=== PATIENT | female | born 1940 | race Caucasian/White ===

== ENCOUNTER 2018-07-09 23:12 | Emergency (ER) | payer MEDICARE, BC ==
[2018-07-09 23:43] LABS: ABSOLUTE BASOPHILS # (AUTO) 0.1 10^3/uL (0.0-0.2); ABSOLUTE EOSINOPHILS # (AUTO) 0.1 10^3/uL (0.0-0.6); ABSOLUTE LYMPHOCYTES (AUTO) 1.1 10^3/uL (0.5-4.7); ABSOLUTE MONOCYTES (AUTO) 0.7 10^3/uL (0.1-1.4); ABSOLUTE NEUT (AUTO) 12.3 10^3/uL (1.7-8.2); BASOPHILS % (AUTO) 0.5 % (0-2); EOSINOPHILS % (AUTO) 0.4 % (0-6); HEMATOCRIT 37.3 % (36.0-47.0); HEMOGLOBIN 12.4 g/dL (12.0-15.5); LYMPHOCYTES % (AUTO) 7.9 % (13-45); MEAN CORPUSCULAR HEMOGLOBIN 28.2 pg (27.0-33.4); MEAN CORPUSCULAR HGB CONC 33.2 g/dL (32.0-36.0); MEAN CORPUSCULAR VOLUME 85 fl (80-97); MONOCYTES % (AUTO) 4.8 % (3-13); PLATELET COUNT 275 10^3/uL (150-450); RED CELL DISTRIBUTION WIDTH 14.8 % (11.5-14.0); SEGMENTED NEUTROPHILS % (AUTO) 86.4 % (42-78); TOTAL CELLS COUNTED % (AUTO) 100 %; WHITE BLOOD COUNT 14.3 10^3/uL (4.0-10.5)
[2018-07-09 23:49] LABS: ALANINE AMINOTRANSFERASE 24 U/L (9-52); ALKALINE PHOSPHATASE 67 U/L (38-126); ANION GAP 8 (5-19); ASPARTATE AMINO TRANSFERASE 18 U/L (14-36); BILIRUBIN,DIRECT 0.3 mg/dL (0.0-0.4); BILIRUBIN,TOTAL 0.3 mg/dL (0.2-1.3); BLOOD UREA NITROGEN 19 mg/dL (7-20); CALCIUM 9.3 mg/dL (8.4-10.2); CARBON DIOXIDE 30 mmol/L (22-30); CHLORIDE 96 mmol/L (98-107); GLUCOSE 153 mg/dL (75-110); LIPASE 71.6 U/L (23-300); POTASSIUM 3.9 mmol/L (3.6-5.0); TOTAL PROTEIN 7.2 g/dL (6.3-8.2)
[2018-07-10] MEDS ORDERED: MAG HYDROX/AL HYDROX/SIMETH SUSP 30 ML UDCUP PO ONE ×3 (00:11→03:39)
[2018-07-10] MEDS ORDERED: LIDOCAINE 2% VISCOUS SOLN 20 ML UDCUP PO ONE ×3 (00:11→03:39)
[2018-07-10 00:12] LABS: CREATINE KINASE 49 U/L (30-135)
[2018-07-10 00:53] LABS: APPEARANCE,URINE CLEAR; BILIRUBIN,URINE NEGATIVE (NEGATIVE); COLOR,URINE STRAW; GLUCOSE, URINE NEGATIVE (NEGATIVE); KETONES,URINE NEGATIVE (NEGATIVE); LEUKOCYTE ESTERASE,URINE NEGATIVE (NEGATIVE); NITRITE,URINE NEGATIVE (NEGATIVE); PROTEIN,URINE NEGATIVE (NEGATIVE); UROBILINOGEN,URINE NEGATIVE mg/dL (<2.0)
--- NOTE | 2018-07-10 01:28 | RADIOLOGY REPORT (SQ) ---
EXAM DESCRIPTION: US ABDOMEN LIMITED COMPLETED DATE/TME: 07/10/2018 00:11 CLINICAL HISTORY: 77 years, Female, Epigastric and RUQ abd pain COMPARISON: None. TECHNIQUE: Grayscale and color Doppler images of the abdomen LIMITATIONS: None. FINDINGS: The visualized portions of the pancreas, aorta, and IVC appear unremarkable. The liver is normal in size, shape, and echotexture. The liver measures 11.8 cm. The main portal vein demonstrates normal hepatopedal flow. The gallbladder is normal. There is no wall thickening or stones. No sonographic Eddy sign was elicited. The common bile duct measures up to 3 mm in diameter. The right kidney measures 10.5 x 5.1 x 5 1 cm. No hydronephrosis. There is a 2.6 x 2.4 x 1.9 cm left renal cyst. IMPRESSION: No evidence of cholelithiasis or acute cholecystitis. copyright 2010 [employer]- All Rights Reserved
[2018-07-10] MEDS ORDERED: ONDANSETRON HCL INJ/PF 4 MG/2 ML SDV IV ONE (01:33)
[2018-07-10] MEDS ORDERED: FENTANYL CITRATE INJ/PF 100 MCG/2 ML AMPUL IV ONE (01:33)
[2018-07-10] MEDS ORDERED: PANTOPRAZOLE SODIUM 40 MG VIAL IV ONE (01:33)
[2018-07-10 03:36] VITALS: BP 187/77
--- NOTE | 2018-07-10 05:01 | ER Document Report ---
Entered by MARLYN SULLIVAN SCRIBE 07/10/18 0016 Acting as scribe for:SELENA BULLOCK MD ED General - General Chief Complaint: Epigastric Pain Stated Complaint: ABDOMINAL PAIN Time Seen by Provider: 07/09/18 23:58 Primary Care Provider: CHRIS GIRON MD [Primary Care Provider] - Follow up as needed Mode of Arrival: Ambulatory Information source: Patient Notes: Patient is a 77 year old female with HTN, rheumatoid arthritis, hypothyroidism presents to the emergency department complaining of epigastric abdominal pain onset today. Patient states she has been struggling with increased indigestion for the last 2 months. She states she presented to her PCP in [place] and is scheduled to have an EGD in 4 months. She states today after having a bath, she began to have a sudden onset of sharp, "unbearable" epigastric abdominal pain. Patient states the pain was a 5/5 in severity for 2 hours and is currently a 3/5. Patient states a pepto bismol tablet has helped her symptoms. TRAVEL OUTSIDE OF THE [place] IN LAST 30 DAYS: No - Related Data Allergies/Adverse Reactions: oxycodone HCl [From Percocet] Allergy (Verified 07/10/18 00:47) Past Medical History - General Information source: Patient - Social History Smoking Status: Former Smoker Cigarette use (# per day): No - Nicotine gum Smoking Education Provided: No Frequency of alcohol use: None Family History: Reviewed & Not Pertinent Patient has suicidal ideation: No Patient has homicidal ideation: No - Past Medical History Cardiac Medical History: Reports: Hx Atrial Fibrillation, Hx Hypertension - ON MEDS Pulmonary Medical History: Comment Only: Hx Asthma - HX ASTHMA WITH CERTAIN BP MEDS, NO LONGER TAKING Musculoskeletal Medical History: Reports Hx Arthritis - RA Past Surgical History: Reports: Hx Genitourinary Surgery - Cystocele repair, Hx Hysterectomy, Hx Orthopedic Surgery - Right shoulder tendon repair, Other - rectocele repair - Immunizations Hx Diphtheria, Pertussis, Tetanus Vaccination: Yes Hx Pneumococcal Vaccination: 04/02/14 Review of Systems - Review of Systems Constitutional: No symptoms reported EENT: No symptoms reported Cardiovascular: No symptoms reported Gastrointestinal: See HPI, Abdominal pain Genitourinary: No symptoms reported Female Genitourinary: No symptoms reported Musculoskeletal: No symptoms reported Skin: No symptoms reported Hematologic/Lymphatic: No symptoms reported Neurological/Psychological: No symptoms reported -: Yes All other systems reviewed and negative Physical Exam - Vital signs Vitals: Temp 97.6 F 07/09/18 23:15 - Notes Notes: GENERAL: Alert, interacts well. No acute distress. HEAD: Normocephalic, atraumatic. EYES: Pupils equal, round, and reactive to light. Extraocular movements intact. ENT: Oral mucosa moist, tongue midline. NECK: Full range of motion. Supple. Trachea midline. LUNGS: Clear to auscultation bilaterally, no wheezes, rales, or rhonchi. No respiratory distress. HEART: Regular rate and rhythm. No murmurs, gallops, or rubs. ABDOMEN: Soft, epigastric tenderness to palpation. Non-distended. Bowel sounds present in all 4 quadrants. No guarding, rigidity, or rebound. EXTREMITIES: Moves all 4 extremities spontaneously. No edema. NEUROLOGICAL: Alert and oriented x3. Normal speech. PSYCH: Normal affect, normal mood. SKIN: Warm, dry, normal turgor. No rashes or lesions noted. Course - Re-evaluation Re-evalutation: 07/10/18 01:34 Patient reports that her epigastric discomfort did improve immediately after drinking the GI cocktail. The pain has now returned and she states that it has "returned with a vengeance". She also has some nauseousness. She does not think she can go home with this kind of discomfort and would like to be admitted to the hospital. 07/10/18 03:38 The patient got additional relief with a second GI cocktail and was able to sleep for a while. She does feel a little bit of the discomfort at this time, but feels comfortable going home. I told her I would give her an additional dose of the GI cocktail prior to discharge to help ensure that she remains comfortable over the next several hours. - Vital Signs Vital signs: Temp Pulse Resp BP Pulse Ox 97.6 F 14 182/68 H 94 07/09/18 23:15 07/10/18 03:01 07/10/18 03:01 07/10/18 03:01 - Laboratory Result Diagrams: 07/09/18 23:23 07/09/18 23:23 Laboratory results interpreted by me: 07/09/18 07/09/18 07/10/18 23:23 23:23 00:33 WBC 14.3 H RDW 14.8 H Seg Neutrophils % 86.4 H Lymphocytes % 7.9 L Absolute Neutrophils 12.3 H Sodium 134.0 L Chloride 96 L Glucose 153 H Urine Blood SMALL H - Diagnostic Test Radiology reviewed: Image reviewed, Reports reviewed - Normal right upper quadrant ultrasound. Discharge - Discharge Clinical Impression: Gastroesophageal reflux disease Qualifiers: Esophagitis presence: esophagitis presence not specified Qualified Code(s): K21.9 - Gastro-esophageal reflux disease without esophagitis Condition: Stable Disposition: HOME, SELF-CARE Additional Instructions: Reflux Disease (GERD) Gastro-Esophageal Reflux Disease (GERD) is caused by stomach acid refluxing back up into the esophagus. The valve at the end of the esophagus may be weak. This is common in persons with a hiatal hernia. GERD symptoms can include indigestion, chest pain, heartburn, or food "sticking." Certain foods, alcohol, and aspirin can make GERD worse. Treatment depends on the severity. Usually, antacids or acid-suppressing medicines are used. When the esophagus is acutely inflamed, the physician will often prescribe membrane-protective drugs such as Carafate. Some patients benefit from medication such as Reglan that tightens the valve at the top of the stomach. Avoid those foods that bring on your symptoms. For many people, these foods are coffee, chocolate, onions, garlic, and carbonated drinks. Don't use alcohol, aspirin, caffeine, or tobacco. Don't eat late at night -- within 4 hours of bedtime. Don't over-eat. If necessary, elevate the head of your bed about 4 inches so that stomach acid will not roll up into your esophagus. Call the doctor if you develop severe chest pain, inability to swallow fluids, fever, or worsening symptoms. Take your omeprazole 30 minutes before a meal every day. Stay on a very bland diet for the next few days. Take antacids between meals, at bedtime, and as needed for heartburn type symptoms. Sleep in a recliner for the next 1-2 days to limit reflux. Follow-up with your doctor in the next few days if not improving. RETURN TO THE EMERGENCY ROOM IF ANY NEW OR WORSENING SYMPTOMS. Referrals: CHRIS GIRON MD [Primary Care Provider] - Follow up in 3-5 days Scribe Attestation: 07/10/18 00:50 I personally performed the services described in the documentation, reviewed and edited the documentation which was dictated to the scribe in my presence, and it accurately records my words and actions. I personally performed the services described in the documentation, reviewed and edited the documentation which was dictated to the scribe in my presence, and it accurately records my words and actions.
--- NOTE | 2018-07-11 11:05 | EKG REPORT ---
SEVERITY:- ABNORMAL ECG - SINUS RHYTHM NONSPECIFIC T ABNORMALITIES, LATERAL LEADS : Confirmed by: Giovana Nascimento 11-Jul-2018 11:03:52
== END 2018-07-10 03:50 | disposition home or self-care (01) ==
LOC: ER 23:12
DX: K21.9 Gastro-esophageal reflux disease without esophagitis (principal); R10.13 Epigastric pain; I10 Essential (primary) hypertension; E03.9 Hypothyroidism, unspecified; I48.91 Unspecified atrial fibrillation; Z88.6 Allergy status to analgesic agent; Z90.710 Acquired absence of both cervix and uterus
CPT/HCPCS: 93005; 99284; 96374; 96375; 36415; 82550; 83690; 85025; 80053; 81001; 84484; 76705; 93010; J3010; J3490; C9113; J2405; S0164